=== PATIENT | female | born 1955 | race Asian ===

== ENCOUNTER 2017-07-15 08:31 | Day surgery (SDC) | payer OTHER ==
[2017-07-15] MEDS ORDERED: PROPOFOL 0 ML (10:13)
[2017-07-15] MEDS ORDERED: PROPOFOL 20 ML (10:29)
== END 2017-07-15 12:39 | disposition home or self-care (01) ==
LOC: GIL 08:31
DX: Z12.11 Encounter for screening for malignant neoplasm of colon (principal); K64.4 Residual hemorrhoidal skin tags; K20.8 Other esophagitis; K29.50 Unspecified chronic gastritis without bleeding; E11.9 Type 2 diabetes mellitus without complications; E78.5 Hyperlipidemia, unspecified
CPT/HCPCS: 43239; 88305